=== PATIENT | female | born 1985 | race Native Hawaiian/Other Pacific Islander ===

== ENCOUNTER 2016-12-26 20:10 | Outpatient (CLI) | payer OTHER | END 2016-12-26 20:24 | disposition short-term general hospital (02) | LOC: AMB 20:10 | DX: R07.89 Other chest pain (principal) | CPT/HCPCS: A0425; A0427 ==

== ENCOUNTER 2016-12-26 20:25 | Emergency (ER) | payer OTHER ==
[~2016-12-26] VITALS: Ht 165.1 cm; Wt 70.3 kg
[2016-12-26 20:42] VITALS: TEMP 98.1
[2016-12-26 22:02] LABS: PLATELET COUNT 298 K/uL (152-353)
[2016-12-26 22:05] LABS: POTASSIUM 3.1 mmol/L (3.6-5.2); SODIUM 139 mmol/L (136-145)
[2016-12-26 23:02] VITALS: BP 127/81
== END 2016-12-26 23:15 | disposition home or self-care (01) ==
LOC: ED 20:25
DX: N39.0 Urinary tract infection, site not specified (principal); K29.70 Gastritis, unspecified, without bleeding; B96.81 Helicobacter pylori [H. pylori] as the cause of diseases classified elsewhere
CPT/HCPCS: 36415; 80053; 80307; 81000; 82550; 82553; 84484; 85027; 86318; 87077; 87086; 87088; 87186; 93005; 96360; 96361; 99284; G0479

== ENCOUNTER 2016-12-28 11:33 | Outpatient (CLI) | payer OTHER ==
[2016-12-28] MEDS ORDERED: ALPR0.5T24 PO (11:52)
[2016-12-28] MEDS ORDERED: PRINIVIL10 MG OR (11:52)
[2016-12-28] MEDS ORDERED: PROZAC10 MG PO (11:52)
[2016-12-28] MEDS ORDERED: ADDAPRIN200 MG OR (11:53)
== END 2016-12-28 11:38 | disposition short-term general hospital (02) ==
LOC: AMB 11:33
DX: R55 Syncope and collapse (principal)
CPT/HCPCS: A0425; A0429

== ENCOUNTER 2016-12-28 11:38 | Emergency (ER) | payer OTHER ==
[~2016-12-28] VITALS: Ht 165.1 cm; Wt 70.3 kg
[2016-12-28] MEDS ORDERED: PRINIVIL10 MG OR (11:52)
[2016-12-28] MEDS ORDERED: PROZAC10 MG PO (11:52)
[2016-12-28] MEDS ORDERED: ALPR0.5T24 PO (11:52)
[2016-12-28] MEDS ORDERED: ADDAPRIN200 MG OR (11:53)
[2016-12-28 13:34] VITALS: BP 118/81; TEMP 98.9
== END 2016-12-28 13:55 | disposition home or self-care (01) ==
LOC: ED 11:38
DX: R55 Syncope and collapse (principal); F32.89 Other specified depressive episodes; R00.0 Tachycardia, unspecified
CPT/HCPCS: 36415; 93005; 96360; 99284

== ENCOUNTER 2018-08-21 10:48 | Emergency (ER) | payer OTHER ==
[~2018-08-21] VITALS: Ht 165.1 cm; Wt 70.3 kg
[~2018-08-21 10:48] MED LIST: ADDAPRIN200 MG OR; ALPR0.5T24 PO; PRINIVIL10 MG OR; PROZAC10 MG PO
[2018-08-21 10:55] VITALS: TEMP 98.7
[2018-08-21 16:30] VITALS: BP 144/83
== END 2018-08-21 16:30 | disposition home or self-care (01) ==
LOC: ED 10:48
DX: M51.86 Other intervertebral disc disorders, lumbar region (principal); M54.32 Sciatica, left side
CPT/HCPCS: 80307; 81000; 81025; 96372; 99283; J1885; J2175; J2270; J2405; J2930; J3410

== ENCOUNTER 2018-10-09 14:31 | Outpatient (CLI) | payer OTHER ==
[2018-10-09 15:10] LABS: PLATELET COUNT 323 K/uL (152-353)
[2018-10-09 15:28] LABS: POTASSIUM 3.3 mmol/L (3.6-5.2)
== END 2018-10-09 19:21 | disposition home or self-care (01) ==
LOC: LABW 14:31
PROVIDERS: Nurse Practitioner
DX: R55 Syncope and collapse (principal); R53.83 Other fatigue
CPT/HCPCS: 36415; 80053; 82306; 82607; 82746; 84436; 84443; 85027

== ENCOUNTER 2019-10-10 19:35 | Emergency (ER) | payer OTHER ==
[~2019-10-10] VITALS: Ht 165.1 cm; Wt 61.2 kg
[2019-10-10 20:46] LABS: POTASSIUM 3.2 mmol/L (3.6-5.2)
[2019-10-10 20:48] LABS: PLATELET COUNT 304 K/uL (152-353)
[2019-10-10 21:10] VITALS: BP 144/100; TEMP 98.2
== END 2019-10-10 21:10 | disposition home or self-care (01) ==
LOC: ED 19:35
PROVIDERS: Emergency Medicine
DX: Z03.818 Encounter for observation for suspected exposure to other biological agents ruled out (principal); J06.9 Acute upper respiratory infection, unspecified; J40 Bronchitis, not specified as acute or chronic; F17.210 Nicotine dependence, cigarettes, uncomplicated
CPT/HCPCS: 80053; 85027; 87502; 87635; 87651; 99284; U0002

== ENCOUNTER 2021-03-09 15:52 | Emergency (ER) | payer OTHER ==
[~2021-03-09] VITALS: Ht 165.1 cm; Wt 61.2 kg
[2021-03-09 15:57] VITALS: BP 140/99; TEMP 97.9
[2021-03-09 16:40] LABS: PLATELET COUNT 295 K/uL (152-353)
[2021-03-09 16:48] LABS: POTASSIUM 3.8 mmol/L (3.6-5.2)
== END 2021-03-09 17:39 | disposition home or self-care (01) ==
LOC: ED 15:52
PROVIDERS: Emergency Medicine
DX: R53.81 Other malaise (principal); Z20.822 Contact with and (suspected) exposure to COVID-19
CPT/HCPCS: 80048; 84484; 85027; 87635; 93005; 99283; U0003

== ENCOUNTER 2021-04-23 17:01 | Emergency (ER) | payer OTHER ==
[~2021-04-23] VITALS: Ht 165.1 cm; Wt 71.2 kg
[2021-04-23 17:47] LABS: PLATELET COUNT 213 K/uL (152-353)
[2021-04-23 17:55] LABS: POTASSIUM 3.6 mmol/L (3.6-5.2)
[2021-04-23 20:14] VITALS: BP 146/88; TEMP 98.7
== END 2021-04-23 20:14 | disposition home or self-care (01) ==
LOC: ED 17:01
PROVIDERS: Emergency Medicine
DX: A59.9 Trichomoniasis, unspecified (principal)
CPT/HCPCS: 36415; 80053; 80307; 81000; 82150; 83690; 85027; 96374; 96375; 99284; J1885; J2405

== ENCOUNTER 2023-01-03 13:37 | Observation (INO) | payer OTHER ==
[~2023-01-03] VITALS: Ht 165.1 cm; Wt 64.2 kg
[2023-01-03 13:50] VITALS: BP 166/112; TEMP 98.5
[2023-01-03 14:19] LABS: PLATELET COUNT 388 K/uL (152-353)
[2023-01-03 14:27] LABS: POTASSIUM 3.9 mmol/L (3.6-5.2); SODIUM 138 mmol/L (136-145)
[2023-01-03 14:50] VITALS: BP 149/107
[2023-01-03 15:42] VITALS: BP 142/94
[2023-01-03 18:07] VITALS: BP 150/99; TEMP 98.2; Ht 165.1 cm; Wt 64.2 kg
[2023-01-03] MEDS ORDERED: ZOLOFT25 MG PO (18:50)
[2023-01-03] MEDS ORDERED: LEVE500T5 PO (18:51)
[2023-01-03] MEDS ORDERED: LISI5TAB10 PO (18:51)
[2023-01-03] MEDS ORDERED: ADVIL200 M1 PO (18:53)
[2023-01-03 20:00] VITALS: BP 135/97; TEMP 98
[2023-01-03 23:53] VITALS: BP 148/101; TEMP 98.7
[2023-01-04 04:00] VITALS: BP 142/96; TEMP 98.3
[2023-01-04 05:08] LABS: PLATELET COUNT 328 K/uL (152-353)
[2023-01-04 05:12] LABS: POTASSIUM 3.4 mmol/L (3.6-5.2)
[2023-01-04] MEDS ORDERED: LISI5TAB10 PO (08:38)
[2023-01-04 09:03] VITALS: BP 123/94; TEMP 97.9
== END 2023-01-04 13:30 | disposition home or self-care (01) ==
LOC: ED 13:37 → MED/SURG 15:58
PROVIDERS: Family Medicine; ADMIT Internal Medicine; ATTEND Internal Medicine
DX: T42.6X2A Poisoning by other antiepileptic and sedative-hypnotic drugs, intentional self-harm, initial encounter (principal); Y92.89 Other specified places as the place of occurrence of the external cause; F15.10 Other stimulant abuse, uncomplicated; F14.10 Cocaine abuse, uncomplicated; G40.802 Other epilepsy, not intractable, without status epilepticus; I10 Essential (primary) hypertension; F32.A Depression, unspecified; F17.210 Nicotine dependence, cigarettes, uncomplicated
CPT/HCPCS: 36415; 80053; 80143; 80179; 80307; 80320; 81002; 81025; 82542; 85027; 93005; 96360; 96361; 96374; 99221; 99283; G0378; J2405